=== PATIENT | male | born 1970 | race Caucasian/White ===

== ENCOUNTER 2019-01-01 00:42 | Emergency (ER) | payer BC ==
[2019-01-01] MEDS ORDERED: Sodium Chloride 0.9% 1,000 ML IV ONE (01:06)
[2019-01-01] MEDS ORDERED: Bacitracin Oint 1 GM U/D Packet TOP ONE (01:12)
[2019-01-01] MEDS ORDERED: Lidocaine 1% with EPINEPHrine 1:100,000 20 ML MDV INJECT ONE (01:12)
[2019-01-01 01:33] LABS: ANION GAP 13.4; CHLORIDE,CL 104 mmol/L (101-111); SODIUM,NA 139 mmol/L (135-145)
--- NOTE | 2019-01-01 03:05 | EDM.PDOC ---
"ED HPI GENERAL MEDICAL PROBLEM - General Chief Complaint: Syncope Stated Complaint: HIT FACE ON COUNTER [id number] Time Seen by Provider: 01/01/19 00:50 Source of Information: Reports: Patient History Limitations: Reports: No Limitations - History of Present Illness INITIAL COMMENTS - FREE TEXT/NARRATIVE: ED with laceration to right cheek stated he got up to bathroom and fell against bathroom counter and hit face on edge. Reports has never had anything similar prior. Admits ETOH today, only a couple drinks had [place] on [place] day in sun. Nothing besides ETOH to drink. No neck pain. No weakness. Pain right cheek. Right Headache Pain Score (Numeric/FACES): 3 - Related Data Allergies Allergy/AdvReac Type Severity Reaction Status Date / Time No Known Allergies Allergy Verified 01/01/19 00:49 Home Meds: Home Meds . [No Known Home Meds] 01/01/19 [History] Past Medical History - Past Health History Medical/Surgical History: Denies Medical/Surgical History Social & Family History - Tobacco Use Smoking Status *Q: Never Smoker Second Hand Smoke Exposure: No - Recreational Drug Use Recreational Drug Use: No ED ROS GENERAL - Review of Systems Review Of Systems: ROS reveals no pertinent complaints other than HPI. - Physical Exam Exam: See Below Exam Limited By: No Limitations General Appearance: Alert, Anxious, Mild Distress, Other (odor etoh) Eye Exam: Bilateral Eye: EOMI, PERRL, Other (sclera injected) Ears: Normal External Exam, Normal TMs Nose: Normal Inspection Throat/Mouth: Normal Inspection, Normal Lips Head Exam: Normocephalic, Facial Lacerations (2.5cm right upper cheek) Neck: Normal Inspection, Full Range of Motion Respiratory/Chest: No Respiratory Distress, Lungs Clear Cardiovascular: Normal Peripheral Pulses, Regular Rate, Rhythm GI/Abdominal: Normal Bowel Sounds Neuro Exam (Abbreviated): Alert, Oriented, CN II-XII Intact, Normal Cognition Back Exam: Full Range of Motion Psychiatric: Anxious Skin Exam: Warm, Dry, Intact, Ecchymosis (left forehead), Wound/Incision (face) ED PROCEDURES - Laceration/Wound Repair Left Face Lac/wound length in cm: 2.5 Appearance: Subcutaneous Distal NVT: Neuro & Vascular Intact Anesthetic Type: Local Local Anesthesia - Lidocaine (Xylocaine): 1% with EPI Local Anesthetic Volume: 2cc Skin Prep: Chlorhexidine (Hibiciens), Saline Closed with: Sutures Suture Size: other (5-0) # of Sutures: 7 Suture Type: Nylon, Interrupted Suture Size: 4-0 # of Sutures: 2 Repaired with: Vicryl Sterile Dressing Applied: Nurse Tetanus Status Addressed: Yes Complications: No Course - Vital Signs Last Recorded V/S: Last Vital Signs Temp 98.1 F 01/01/19 00:45 Pulse 98 01/01/19 00:45 Resp 20 01/01/19 00:45 BP 136/102 H 01/01/19 00:45 Pulse Ox 96 01/01/19 00:45 Orthostatic Blood Pressure [ 136/102 Standing] Orthostatic Blood Pressure [ 148/103 Sitting] Orthostatic Blood Pressure [ 138/99 Supine] - Orders/Labs/Meds Orders: Active Orders 24 hr Category Date Time Status EKG Documentation Completion [RC] URGENT Care 01/01/19 00:55 Active Orthostatic Vital Signs [RC] ASDIRECTED Care 01/01/19 00:55 Active Head wo Cont [CT] Urgent Exams 01/01/19 01:13 Taken Max Facial Sinus wo Cont [CT] Urgent Exams 01/01/19 01:16 Taken Sodium Chloride 0.9% [Normal Saline] 1,000 ml Med 01/01/19 01:06 Active IV .BOLUS Medication Orders Sodium Chloride (Normal Saline) 1,000 mls @ 500 mls/hr IV .BOLUS ONE Stop: 01/01/19 03:05 Last Admin: 01/01/19 01:16 Dose: 500 mls/hr Labs: Laboratory Tests 01/01/19 01/01/19 01/01/19 Range/Units 01:10 01:10 01:10 WBC 4.4 L (5.0-10.0) 10^3/uL RBC 4.80 (4.6-6.2) 10^6/uL Hgb 16.0 (14.0-18.0) g/dL Hct 46.7 (40.0-54.0) % MCV 97.3 (80-100) fL MCH 33.3 (27.0-34.0) pg MCHC 34.3 (33.0-35.0) g/dL Plt Count 234 (150-450) 10^3/uL Neut % (Auto) 53.4 (42.2-75.2) % Lymph % (Auto) 32.7 (20.5-50.1) % Mcculloch % (Auto) 9.8 H (2-8) % Eos % (Auto) 3.6 H (1.0-3.0) % Baso % (Auto) 0.5 (0.0-1.0) % Sodium 139 (135-145) mmol/L Potassium 3.4 L (3.6-5.0) mmol/L Chloride 104 (101-111) mmol/L Carbon Dioxide 25.0 (21.0-31.0) mmol/L Anion Gap 13.4 BUN 12 (7-18) mg/dL Creatinine 0.9 (0.6-1.3) mg/dL Est Cr Clr Drug Dosing 108.98 mL/min Estimated GFR (MDRD) > 60 BUN/Creatinine Ratio 13.33 Glucose 113 H (74-105) mg/dL Calcium 8.5 (8.4-10.2) mg/dl Total Bilirubin 0.7 (0.2-1.0) mg/dL AST 22 (10-42) IU/L ALT 24 (10-60) IU/L Alkaline Phosphatase 81 (42-121) IU/L Troponin I < 0.02 (0.00-0.02) ng/ml Total Protein 6.9 (6.7-8.2) g/dl Albumin 3.9 (3.2-5.5) g/dl Globulin 3.0 Albumin/Globulin Ratio 1.30 Urine Color (YELLOW) Urine Appearance (CLEAR) Urine pH (5.0-9.0) Ur Specific [place] (1.005-1.030) Urine Protein (NEGATIVE) Urine Glucose (UA) (NEGATIVE) Urine Ketones (NEGATIVE) Urine Occult Blood (NEGATIVE) Urine Nitrite (NEGATIVE) Urine Bilirubin (NEGATIVE) Urine Urobilinogen (0.2-1.0) mg/dL Ur Leukocyte Esterase (NEGATIVE) Urine Opiates Screen (NEGATIVE) Ur Oxycodone Screen (NEGATIVE) Urine Methadone Screen (NEGATIVE) Ur Barbiturates Screen (NEGATIVE) U Tricyclic Antidepress (NEGATIVE) Ur Phencyclidine Scrn (NEGATIVE) Ur Amphetamine Screen (NEGATIVE) U Methamphetamines Scrn (NEGATIVE) Urine MDMA Screen (NEGATIVE) U Benzodiazepines Scrn (NEGATIVE) Urine Cocaine Screen (NEGATIVE) U Marijuana (THC) Screen (NEGATIVE) Ethyl Alcohol 155 mg/dL 01/01/19 01/01/19 Range/Units 02:18 02:18 WBC (5.0-10.0) 10^3/uL RBC (4.6-6.2) 10^6/uL Hgb (14.0-18.0) g/dL Hct (40.0-54.0) % MCV (80-100) fL MCH (27.0-34.0) pg MCHC (33.0-35.0) g/dL Plt Count (150-450) 10^3/uL Neut % (Auto) (42.2-75.2) % Lymph % (Auto) (20.5-50.1) % Mcculloch % (Auto) (2-8) % Eos % (Auto) (1.0-3.0) % Baso % (Auto) (0.0-1.0) % Sodium (135-145) mmol/L Potassium (3.6-5.0) mmol/L Chloride (101-111) mmol/L Carbon Dioxide (21.0-31.0) mmol/L Anion Gap BUN (7-18) mg/dL Creatinine (0.6-1.3) mg/dL Est Cr Clr Drug Dosing mL/min Estimated GFR (MDRD) BUN/Creatinine Ratio Glucose (74-105) mg/dL Calcium (8.4-10.2) mg/dl Total Bilirubin (0.2-1.0) mg/dL AST (10-42) IU/L ALT (10-60) IU/L Alkaline Phosphatase (42-121) IU/L Troponin I (0.00-0.02) ng/ml Total Protein (6.7-8.2) g/dl Albumin (3.2-5.5) g/dl Globulin Albumin/Globulin Ratio Urine Color Yellow (YELLOW) Urine Appearance Clear (CLEAR) Urine pH 7.0 (5.0-9.0) Ur Specific [place] 1.010 (1.005-1.030) Urine Protein Negative (NEGATIVE) Urine Glucose (UA) Negative (NEGATIVE) Urine Ketones Negative (NEGATIVE) Urine Occult Blood Negative (NEGATIVE) Urine Nitrite Negative (NEGATIVE) Urine Bilirubin Negative (NEGATIVE) Urine Urobilinogen 0.2 (0.2-1.0) mg/dL Ur Leukocyte Esterase Negative (NEGATIVE) Urine Opiates Screen Negative (NEGATIVE) Ur Oxycodone Screen Negative (NEGATIVE) Urine Methadone Screen Negative (NEGATIVE) Ur Barbiturates Screen Negative (NEGATIVE) U Tricyclic Antidepress Negative (NEGATIVE) Ur Phencyclidine Scrn Negative (NEGATIVE) Ur Amphetamine Screen Negative (NEGATIVE) U Methamphetamines Scrn Negative (NEGATIVE) Urine MDMA Screen Negative (NEGATIVE) U Benzodiazepines Scrn Negative (NEGATIVE) Urine Cocaine Screen Negative (NEGATIVE) U Marijuana (THC) Screen Negative (NEGATIVE) Ethyl Alcohol mg/dL Meds: Medications Generic Name Dose Route Start Last Admin Trade Name Freq PRN Reason Stop Dose Admin Sodium Chloride 1,000 mls @ 500 mls/hr 01/01/19 01:06 01/01/19 01:16 Normal Saline IV 01/01/19 03:05 500 mls/hr .BOLUS ONE Administration Discontinued Medications Generic Name Dose Route Start Last Admin Trade Name Freq PRN Reason Stop Dose Admin Bacitracin 1 dose 01/01/19 01:12 01/01/19 01:16 Bacitracin Oint 1 Gm TOP 01/01/19 01:13 1 dose ONETIME ONE Administration Lidocaine/Epinephrine 20 ml 01/01/19 01:12 01/01/19 01:16 Xylocaine 1% With Epinephrine 1:100,000 INJECT 01/01/19 01:13 20 ml ONETIME ONE Administration - Radiology Interpretation Free Text/Narrative:: [facility] Final Radiology Report Call: [phone] assistance Online chat: [email or web address] Name: MATT MACHADO Age: 48Years M Date: 01/01/2019 SSN: -- : [id number] Study: CT HEAD WO Requesting Physician: RICHARD TEJADA Images: [id number] Addl Studies: Provided Clinical History: Contrast: Without Contrast Medium: Contrast Amount: Contrast Method: Page 1 of 2 EXAM: CT Head Without Contrast EXAM DATE/TIME: 01/01/2019 2:00 AM CLINICAL HISTORY: 48 years old, male; Injury or trauma; Initial encounter; Blunt trauma ( contusions or hematomas); Injury details: Syncope with fall and hit face on counter, abrasion under right eye. PT also having headache. TECHNIQUE: Imaging protocol: Axial computed tomography images of the head without contrast. Coronal and sagittal reformatted images were created and reviewed. Radiation optimization: All CT scans at this facility use at least one of these dose optimization techniques: automated exposure control; mA and/or kV adjustment per patient size (includes targeted exams where dose is matched to clinical indication); or iterative reconstruction. COMPARISON: No relevant prior studies available. FINDINGS: Brain: No evidence for acute transcortical infarct. No mass effect or midline shift. No extra-axial collection. No acute intracranial hemorrhage. Basal cisterns are patent. Ventricles: Normal. No ventriculomegaly. Bones/joints: Unremarkable. No acute fracture. Sinuses: Visualized sinuses are unremarkable. No fluid levels. Mastoid air cells: Visualized mastoid air cells are well aerated. No mastoid effusion. Soft tissues: Unremarkable. IMPRESSION: MATT MACHADO | Final Radiology Report CONFIDENTIALITY STATEMENT This report is intended only for use by the referring physician, and only in accordance with law. If you received this in error, call [phone]. Page 2 of 2 No acute intracranial hemorrhage or mass effect. Thank you for allowing us to participate in the care of your patient. Dictated and Authenticated by: Edmar Stack MD 01/01/2019 2:53 AM Central Time ([place] & [place]) [facility] Final Radiology Report Call: [phone] assistance Online chat: [email or web address] Name: MATT MACHADO Age: 48Years M Date: 01/01/2019 SSN: -- : [id number] Study: CT MAXILLOFACIAL/SINUSES WO Requesting Physician: RICHARD TEJADA Images: [id number] Addl Studies: Provided Clinical History: Contrast: Without Contrast Medium: Contrast Amount: Contrast Method: Page 1 of 2 EXAM: CT Maxillofacial Without Contrast EXAM DATE/TIME: 01/01/2019 2:00 AM CLINICAL HISTORY: 48 years old, male; Injury or trauma; Initial encounter; Blunt trauma ( contusions or hematomas); Cheek bone; Injury details: Syncope with fall and hit face on counter, abrasion under right eye. PT also having headache. TECHNIQUE: Imaging protocol: Axial computed tomography images of the face without intravenous contrast. Coronal and sagittal reformatted images were created and reviewed. Radiation optimization: All CT scans at this facility use at least one of these dose optimization techniques: automated exposure control; mA and/or kV adjustment per patient size (includes targeted exams where dose is matched to clinical indication); or iterative reconstruction. COMPARISON: No relevant prior studies available. FINDINGS: Orbits: No acute intraorbital abnormality. Globes are unremarkable. Sinuses: Polyp versus retention cyst within the inferior left maxillary sinus. Bones/joints: No acute fracture. Soft tissues: Right premaxillary subcutaneous fat stranding and emphysema. No radiopaque foreign body. IMPRESSION: Right premaxillary subcutaneous fat stranding and emphysema. No radiopaque foreign body. No acute fracture. MATT MACHADO | Final Radiology Report Departure - Departure Time of Disposition: 03:14 Disposition: Home, Self-Care 01 Condition: Good Clinical Impression: Syncope Qualifiers: Syncope type: unspecified Qualified Code(s): R55 - Syncope and collapse Facial laceration Qualifiers: Encounter type: initial encounter Qualified Code(s): S01.81XA - Laceration without foreign body of other part of head, initial encounter Alcohol intoxication Qualifiers: Complication of substance-induced condition: uncomplicated Qualified Code(s): F10.920 - Alcohol use, unspecified with intoxication, uncomplicated - Discharge Information *PRESCRIPTION DRUG MONITORING PROGRAM REVIEWED*: Not Applicable *COPY OF PRESCRIPTION DRUG MONITORING REPORT IN PATIENT JAMES: Not Applicable Instructions: Laceration Care, Adult, Facial Laceration, [id number] Additional Instructions: tylenol 65omg every 4 hours as needed for discomfort change position slowly increase fluid intake water, gatorade limit alcohol use rest light activity ice pack to face follow up clinic next week for recheck cleanse wound daily with soap and water blot dry sutures out 10 days - My Orders Last 24 Hours: My Active Orders 01/01/19 00:55 EKG Documentation Completion [RC] URGENT Orthostatic Vital Signs [RC] ASDIRECTED 01/01/19 01:06 Sodium Chloride 0.9% [Normal Saline] 1,000 ml IV .BOLUS 01/01/19 01:13 Head wo Cont [CT] Urgent 01/01/19 01:16 Max Facial Sinus wo Cont [CT] Urgent - Assessment/Plan Last 24 Hours: My Active Orders 01/01/19 00:55 EKG Documentation Completion [RC] URGENT Orthostatic Vital Signs [RC] ASDIRECTED 01/01/19 01:06 Sodium Chloride 0.9% [Normal Saline] 1,000 ml IV .BOLUS 01/01/19 01:13 Head wo Cont [CT] Urgent 01/01/19 01:16 Max Facial Sinus wo Cont [CT] Urgent"
[2019-01-01] MEDS ORDERED: Acetaminophen 325 MG Tab PO ONE (03:24)
== END 2019-01-01 03:27 | disposition home or self-care (01) ==
LOC: DL.ED 00:42
DX: S01.411A Laceration without foreign body of right cheek and temporomandibular area, initial encounter (principal); S00.83XA Contusion of other part of head, initial encounter; R55 Syncope and collapse; F10.920 Alcohol use, unspecified with intoxication, uncomplicated; Y90.6 Blood alcohol level of 120-199 mg/100 ml; W18.09XA Striking against other object with subsequent fall, initial encounter
CPT/HCPCS: 12011; 36415; 70450; 70486; 80053; 80305; 81003; 84484; 85025; 93005; 96360; 96361; 99284; A9270; G0480; J7030